=== PATIENT | female | born 1995 | race American Indian/Alaskan Native ===

== ENCOUNTER 2017-07-03 11:55 | Emergency (ER) | payer OTHER ==
[2017-07-03 12:37] VITALS: BP 133/87
[2017-07-03] MEDS ORDERED: MOTRIN PO ONE (15:43)
[2017-07-03] MEDS ORDERED: NORCO 5/325 PO ONE (15:43)
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
== END 2017-07-03 16:04 | disposition home or self-care (01) ==
LOC: ED 11:55
DX: S16.1XXA Strain of muscle, fascia and tendon at neck level, initial encounter (principal); R51 Headache; J45.909 Unspecified asthma, uncomplicated; Z88.8 Allergy status to other drugs, medicaments and biological substances; V87.7XXA Person injured in collision between other specified motor vehicles (traffic), initial encounter; Y93.89 Activity, other specified; Y99.8 Other external cause status; Y92.410 Unspecified street and highway as the place of occurrence of the external cause
CPT/HCPCS: 99282